=== PATIENT | male | born 1965 | race Caucasian/White ===

== ENCOUNTER 2018-12-18 09:15 | Outpatient (REF) | payer BC, SELFPAY ==
[2018-12-18 19:44] LABS: Anion Gap 7.1 mmol/L (3-11); BUN 19 mg/dL (7-18); CO2 28.9 mmol/L (21.0-32.0); CREATININE 1.01 mg/dL (0.70-1.30); Calcium 9.2 mg/dL (8.5-10.1); Chloride 104 mmol/L (98-107); Glucose 103 mg/dL (70-100); Potassium 4.6 mmol/L (3.5-5.1); Sodium 140 mmol/L (136-145)
== END 2018-12-18 09:35 ==
LOC: NCHCN 09:15
PROVIDERS: PCP Physician Assistant; Visit Provider Physician Assistant Medical
DX: I10 Essential (primary) hypertension (principal)
CPT/HCPCS: 80048

== ENCOUNTER 2019-12-20 09:50 | Outpatient (REF) | payer BC, SELFPAY ==
[2019-12-20 20:11] LABS: ALT 29 U/L (16-63); AST 23 U/L (15-37); Albumin 4.3 g/dL (3.4-5.0); Alkaline Phosphatase 56 U/L (46-116); Anion Gap 10.1 mmol/L (3-11); BUN 16 mg/dL (7-18); Bilirubin, Total 0.7 mg/dL (0.2-1.0); CO2 27.9 mmol/L (21.0-32.0); CREATININE 0.85 mg/dL (0.70-1.30); Calculated LDL 190 mg/dL (<100); Chloride 101 mmol/L (98-107); Cholesterol 296 mg/dL (<200); Glucose 101 mg/dL (74-106); HDL Cholesterol 85 mg/dL (40-60); Potassium 4.2 mmol/L (3.5-5.1); Sodium 139 mmol/L (136-145); Total Protein 7.7 g/dL (6.4-8.2); Triglyceride 108 mg/dL (<150)
== END 2019-12-20 10:10 ==
LOC: NCHCN 09:50
PROVIDERS: PCP Physician Assistant; Visit Provider Nurse Practitioner Family
DX: I10 Essential (primary) hypertension (principal); E78.5 Hyperlipidemia, unspecified
CPT/HCPCS: 80053; 80061

== ENCOUNTER 2020-07-23 14:33 | Outpatient (REF) | payer BC, SELFPAY ==
[2020-07-23 21:40] LABS: ALT 30 U/L (16-63); AST 20 U/L (15-37); Alkaline Phosphatase 63 U/L (46-116); Anion Gap 12.6 mmol/L (3-11); BUN 18 mg/dL (7-18); Bilirubin, Total 0.7 mg/dL (0.2-1.0); CO2 25.4 mmol/L (21.0-32.0); CREATININE 0.82 mg/dL (0.70-1.30); Calculated LDL 74 mg/dL (<100); Chloride 102 mmol/L (98-107); Cholesterol 167 mg/dL (<200); Glucose 103 mg/dL (74-106); HDL Cholesterol 86 mg/dL (40-60); Potassium 4.3 mmol/L (3.5-5.1); Sodium 140 mmol/L (136-145); Total Protein 7.1 g/dL (6.4-8.2); Triglyceride 36 mg/dL (<150)
[2020-07-23 21:56] LABS: Creatine Kinase 119 U/L (39-308)
== END 2020-07-23 14:53 ==
LOC: NCHCN 14:33
PROVIDERS: PCP Physician Assistant; Visit Provider Nurse Practitioner Family
DX: E78.5 Hyperlipidemia, unspecified (principal); I10 Essential (primary) hypertension
CPT/HCPCS: 80053; 80061; 82550

== ENCOUNTER 2021-08-25 12:57 | Outpatient (REF) | payer MEDICAID, SELFPAY ==
[2021-08-25 22:13] LABS: Anion Gap 11.2 mmol/L (3-11); BUN 15 mg/dL (7-18); CO2 26.8 mmol/L (21.0-32.0); CREATININE 0.8 mg/dL (0.70-1.30); Calcium 9.1 mg/dL (8.5-10.1); Chloride 103 mmol/L (98-107); Glucose 98 mg/dL (74-106); Potassium 4.5 mmol/L (3.5-5.1); Sodium 141 mmol/L (136-145)
== END 2021-08-25 12:58 | disposition home or self-care (01) ==
LOC: NCHCN 12:57
PROVIDERS: PCP Physician Assistant; Visit Provider Physician Assistant
DX: I10 Essential (primary) hypertension (principal)
CPT/HCPCS: 80048

== ENCOUNTER 2021-10-13 10:21 | Outpatient (CLI) | payer MEDICAID, SELFPAY ==
--- NOTE | 2021-10-13 10:15 | DI.RAD_ITS ---
Exam(s) XR SHOULDER LT COMPLETE 2+V EXAM: XR SHOULDER LT COMPLETE 2+V CLINICAL HISTORY: left shoulder pain. TECHNIQUE: 2D digital imaging was performed of the left shoulder. Two images were obtained. AP and axillary views were obtained. COMPARISON: No exams were available for comparison FINDINGS: BONES: No acute fracture is present. No bony destructive lesion is seen. JOINTS: There are marked degenerative changes seen at the glenohumeral joint with loss of the joint s pace. Subchondral sclerosis and cysts are also noted. Mild degenerative changes are seen at the acr omioclavicular joint. SOFT TISSUE: Normal. IMPRESSION: Marked osteoarthritis of the glenohumeral joint. DATA REPOSITORY: RADIATION DOSE DELIVERED:
== END 2021-10-13 10:22 | disposition home or self-care (01) ==
LOC: DIORS 10:22
PROVIDERS: PCP Physician Assistant; Visit Provider Student in an Organized Health Care Education/Training Program
DX: M25.512 Pain in left shoulder (principal); M19.012 Primary osteoarthritis, left shoulder
CPT/HCPCS: 73030

== ENCOUNTER 2021-10-23 02:34 | Outpatient (CLI) | payer MEDICAID, SELFPAY ==
--- NOTE | 2021-10-23 10:25 | DI.CT_ITS ---
Exam(s) CT UPPER EXTREMITY LT WO EXAM: CT UPPER EXTREMITY LT WO CLINICAL HISTORY: Severe arthritis,M19.012 TECHNIQUE: Imaging Protocol: Axial computed tomography images with coronal and sagittal reformatted images were created and reviewed. CONTRAST MATERIAL: None COMPARISON: CR XR SHOULDER LT COMPLETE 2+V from 10/13/2021 FINDINGS: Visualized lung field: 2 calcified granulomas are noted in the visualized left lung field. OSSEOUS: There is severe osteoarthritic narrowing of the left glenohumeral bamsf-dtqe-xk-bone degener ative subarticular cysts. There is also a mena-type osteophyte on the inferior articular surface of the humeral head. There are multiple calcified bodies seen in the medial recess. This subcoracoid articular extension drapes over the subscapularis. There are moderate degenerative changes in the AC joint. There is os acromiale noted. IMPRESSION: Severe advanced osteoarthritic degenerative change in the left glenohumeral joint. There also multip le partially calcified loose bodies, as described above. There are moderate degenerative changes in the ipsilateral AC joint. RADIATION DOSE DELIVERED: 860.75mGy.cm Total DLP DATA REPOSITORY: All CT scans at this facility are submitted to the National Radiology Data Registry (NRDR) Dose Index Registry (DIR) with the [employer] (ACR). RADIATION OPTIMIZATION: All CT scans at this facility use at least one of these dose optimization te chniques: automated exposure control; mA and/or kV adjustment per patient size (includes targeted exa ms where dose is matched to clinical indication); or iterative reconstruction.
== END 2021-10-23 02:54 ==
PROVIDERS: PCP Physician Assistant; Visit Provider Student in an Organized Health Care Education/Training Program
DX: M19.012 Primary osteoarthritis, left shoulder (principal)
CPT/HCPCS: 73200

== ENCOUNTER 2022-08-27 13:52 | Outpatient (REF) | payer MEDICAID, SELFPAY ==
[2022-08-27 18:42] LABS: Abs Immature Grans 0.02 10^3/uL (0.0-0.06); Absolute Basophil Count 0.06 10^3/uL (0.0-0.2); Absolute Lymphocyte Count 1.71 10^3/uL (1.2-3.4); Absolute Monocyte Count 0.73 10^3/uL (0.1-0.8); Absolute Neutrophil Count 6.56 10^3/uL (1.2-6.7); Basophils % 0.6; Eosinophils % 2.2; HCT 47.2 % (40.0-50.0); HGB 15.8 g/dL (13.5-17.5); Immature Grans % 0.2; Lymphocytes % 18.4; MCH 31.4 pg (27.0-33.0); MCHC 33.5 % (32.0-36.0); MCV 94 fL (80-95); MPV 11.7 fL (8.0-11.0); Monocytes % 7.9; Neutrophils % 70.7; Platelet Count 170 10^3/uL (130-400); RBC 5.03 10^6/uL (4.36-5.78); RDW 12.4 % (11.8-14.1); WBC 9.28 10^3/uL (4.4-10.8)
[2022-08-27 18:55] LABS: ALT 23 U/L (16-63); AST 25 U/L (15-37); Albumin 4.3 g/dL (3.4-5.0); Alkaline Phosphatase 57 U/L (46-116); Anion Gap 7.6 mmol/L (3-11); BUN 11 mg/dL (7-18); Bilirubin, Total 0.8 mg/dL (0.2-1.0); CO2 27.4 mmol/L (21.0-32.0); CREATININE 0.7 mg/dL (0.70-1.30); Calcium 9.2 mg/dL (8.5-10.1); Chloride 102 mmol/L (98-107); Estimated GFR 106.14 (mL/min/1.73m2); Glucose 102 mg/dL (74-106); Potassium 4.2 mmol/L (3.5-5.1); Sodium 137 mmol/L (136-145); Total Protein 7.8 g/dL (6.4-8.2)
== END 2022-08-27 13:53 | disposition home or self-care (01) ==
LOC: NCHCN 13:52
PROVIDERS: PCP Physician Assistant; Visit Provider Physician Assistant
DX: I10 Essential (primary) hypertension (principal); E78.5 Hyperlipidemia, unspecified; Z00.00 Encounter for general adult medical examination without abnormal findings
CPT/HCPCS: 80053; 85025

== ENCOUNTER 2023-09-02 08:47 | Outpatient (REF) | payer BC, SELFPAY ==
[2023-09-02 18:49] LABS: ALT 32 U/L (16-63); AST 24 U/L (15-37); Albumin 4.1 g/dL (3.4-5.0); Alkaline Phosphatase 64 U/L (46-116); Anion Gap 5.4 mmol/L (3-11); BUN 16 mg/dL (7-18); Bilirubin, Total 0.7 mg/dL (0.2-1.0); CO2 28.6 mmol/L (21.0-32.0); CREATININE 0.9 mg/dL (0.70-1.30); Calcium 9.4 mg/dL (8.5-10.1); Calculated LDL 81 mg/dL (<100); Chloride 103 mmol/L (98-107); Cholesterol 211 mg/dL (<200); Estimated GFR 97.78 (mL/min/1.73m2); Glucose 112 mg/dL (74-106); HDL Cholesterol 119 mg/dL (40-60); Potassium 4.4 mmol/L (3.5-5.1); Sodium 137 mmol/L (136-145); Total Protein 7.7 g/dL (6.4-8.2); Triglyceride 59 mg/dL (<150)
[2023-09-02 19:00] LABS: Hemoglobin A1C 5.7 % (<5.7)
== END 2023-09-02 08:48 | disposition home or self-care (01) ==
LOC: NCHCN 08:47
PROVIDERS: PCP Physician Assistant; Visit Provider Physician Assistant
DX: I10 Essential (primary) hypertension (principal); E78.5 Hyperlipidemia, unspecified; E66.9 Obesity, unspecified
CPT/HCPCS: 80053; 80061; 83036

== ENCOUNTER 2024-09-04 18:20 | Outpatient (REF) | payer BC, SELFPAY ==
--- OUTSIDE RECORDS SUMMARY | 2024-09-04 18:22 | XMS_ITS ---
Author Organization Unknown Address [address] [place] [address] [phone] Phone Care Team Providers Care Climbing Guide Name Role Phone LINN Joseph Attending Unavailable Social History Type Status Start Date End Date Code Code Syst em Smoking History Former smoker 3625641 SNOMED CT Sex Male Hospital Discharge Instructions Should you have any questions prior to discharge, please contact a member of your healthcare team. If you have left the hospital and have any questions, please contact your primary care physician. Reason For Referral No Data Found Implants Implanted DAVID Status Assigning Authority Procedure Date Lot Number Serial Number Manufacturing Date Expiration Date Distinct ID Code Brand Name Model Number INSET SHOULDER SYSTEM OFFSET HUMERAL HEAD 18MMX 48MM X R26MM ARTICULATI ON Active LEFT TSA 09/16 TGDA01 05/12/2026 [id number] 048 INSET SHOULDER SYSTEM SIZE 0 Active 09/16 THEA10 06/09/2027 5U0QZ13 280 GLENOID CIRCULAR IN LINE PEG +B11 30S0 CI27 0061 /$$7 UGCC 10/10 4D20 2606 162 Active FDA 09/16 UGCC01 03/25/2026 Orthopaedi c cement, antimicrob ial 0100 8855 5658 2220 1727 0228 1022 DTC0 200 Active FDA LEFT TKA 09/16 36BOJ14 00 12/07/2026 JOHNY 1357637 0 Allergies and Adverse Reactions Allergy Substance Reaction Severity Start Date Concern Status Co de Code System No Known Drug Allergies Active 270518944 SNOMED-CT Plan of Treatment PRE-OP TESTING 09/07/2022 PRE-OP TESTING 08/30/2022 PRE-OP COVID-19 TESTING 09/14/2022 CT LOWER EXTREM W/O CONTRAST 09/07/2022 Encounters Encounter Diagnosis Start Date Code Code Sys tem Idiopathic osteoarthritis 01/26/2022 095027384 SN OMED-CT Personal Care Team Section Performer Name Performer Role Active Date Inactive Da te
--- OUTSIDE RECORDS SUMMARY | 2024-09-04 18:23 | XMS_ITS ---
Author Organization Unknown Address [address] [place] [address] [phone] Phone Care Team Providers Care Special Library Librarian Name Role Phone Unavailable Xwatchlist Unavailable MARLENE Sal Attending Unavailable KIM Kim FARM OPERATOR Unavailable LINN Joseph Nurse Practitioner Unavailabl e Results XR SHOULDER 2V OR MORE LT* - Completed: 09/16/2022 12:24 LOINC: [facility] [place], [place] [address] PACS PRESS OPERATOR MEAT REPORT Patient Name: JAIME RUBIN MRN: Sex: : Age: [id number] M 1965 57 Account: Accession: Admit: StayType: [id number] 09/16/2022 O/P Ordered: Order ID: Submitted: Ordering Provider: 09/16/2022 09:05 [id number] KVK MAHAMED ROSARIO Completed: Technologist: Resulted: 09/16/2022 12:24 KVK 09/16/2022 13:18 Study Description: XR SHOULDER 2V OR MORE LT* Study Reason: TOTAL SHOULDER REPLACE Views: 2 COMPARISON: None FINDINGS: A total shoulder prosthesis has been placed. The alignment appears satisfactory. There are some residual postsurgical air in the soft tissues. Report Digitally Signed by Rajni Mckeon on 09/16/2022 01:18 PM EST Social History Type Status Start Date End Date Code Code Syst em Smoking History Former smoker 3212111 SNOMED CT Sex Male Vital Signs Vital Sign Value Unit [place] Value [place] Unit Date/Time Recent/Initial? Code Code System Body Mass Index 36.41 kg/m2 09/06/2022 10:32 Initial 04704 -5 LOINC Systolic Blood Pressure 108 mm[Hg] 09/16/2022 13:14 Initial 8480- 6 LOINC Diastolic Blood Pressure 65 mm[Hg] 09/16/2022 13:14 Initial 8462- 4 LOINC Body Surface Area 2.21 m2 09/06/2022 10:32 Initial 3140- 1 LOINC Height 168.910 0 cm 66.50 in 09/06/2022 10:32 Initial 8302- 2 LOINC O2 Saturation 96 % 2021 13:14 Initial 67491 -5 LOINC Pulse 81.0 /min 09/16/2022 13:14 Initial 8867- 4 LOINC Respiration 16 /min 09/16/20 13:14 Initial 9279- 1 LOINC Temperature 36.4 Reema 97.5 F 09/16/20 13:14 Initial 8310- 5 LOINC Weight 103.87 kg 229.00 lbs 09/06/2022 10:32 Initial 96719 -7 LOINC Hospital Discharge Instructions Should you have any questions prior to discharge, please contact a member of your healthcare team. If you have left the hospital and have any questions, please contact your primary care physician. Reason For Referral No Data Found Procedures Procedure Name Date Status Code Code Dena m Arthroplasty, Glenohumeral J oint; Total Shoulder 09/16/2022 completed 36710 CPT Injection Anesthetic Agent a nd/or Steroid; Brachial Plexus 09/16/2022 completed 00539 CPT Anesthesia, Open/Surg Arthro scopic Proc, Humeral Head & Neck, Sternoclav/Ac/Shoulder Jt; Replacemen 09/16/2022 completed 98610 CPT Implants Implanted DAVID Status Assigning Authority Procedure Date Lot Number Serial Number Manufacturing Date Expiration Date Distinct ID Code Brand Name Model Number INSET SHOULDER SYSTEM OFFSET HUMERAL HEAD 18MMX 48MM X R26MM ARTICULATI ON Active LEFT TSA 09/16 TGDA01 05/12/2026 [id number] 048 INSET SHOULDER SYSTEM SIZE 0 Active 09/16 THEA10 06/09/2027 3M5MI48 280 GLENOID CIRCULAR IN LINE PEG +B11 30S0 CI27 0061 /$$7 UGCC 10/10 4D20 2606 162 Active FDA 09/16 UGCC01 03/25/2026 Orthopaedi c cement, antimicrob ial 0100 8855 5658 2220 1727 0228 1022 DTC0 200 Active FDA LEFT TKA 09/16 12SQI68 00 12/07/2026 JOHNY 3855677 0 Allergies and Adverse Reactions Allergy Substance Reaction Severity Start Date Concern Status Co de Code System No Known Drug Allergies Active 850406194 SNOMED-CT Plan of Treatment PRE-OP TESTING 09/07/2022 PRE-OP TESTING 08/30/2022 PRE-OP COVID-19 TESTING 09/14/2022 CT LOWER EXTREM W/O CONTRAST 09/07/2022 Encounters Encounter Diagnosis Start Date Code Code Sys tem Primary osteoarthritis, left shoulder 09/16/2022 SNOMED-CT Personal Care Team Section Performer Name Performer Role Active Date Inactive Da tiffani
--- OUTSIDE RECORDS SUMMARY | 2024-09-04 18:23 | XMS_ITS ---
Author Organization Unknown Address [address] [place] [address] [phone] Phone Care Team Providers Care Assistant Property Manager Name Role Phone MARLENE Sal Attending Unavailable UNLISTED PROVIDER - REQUESTED Primary Un available Results CT UPPER EXT WO CONTRAST LT - Completed: 09/07/2022 14:29 [facility] [place], [place] [address] PACS DECK ENGINE OPERATOR REPORT Patient Name: JAIME RUBIN MRN: Sex: : Age: [id number] M 1965 57 Account: Accession: Admit: StayType: [id number] 09/07/2022 O/P Ordered: Order ID: Submitted: Ordering Provider: 09/07/2022 13:18 [id number] CLEMENTE MAHAMED ROSARIO Completed: Technologist: Resulted: 09/07/2022 14:29 PML 09/07/2022 17:30 Study Description: CT UPPER EXT WO CONTRAST LT Study Reason:OA LT SHOULDER COMPARISON: No exams were available for comparison FINDINGS: [There is no evidence of fracture nor dislocation. There are advanced osteoarthritic degenerative changes including advanced joint space narrowing and mena-type osteophyte on the inferior articular surface of the humeral head. Also degenerative subarticular cysts evident on both sides of the joint. In addition, there are multiple calcified loose bodies in the medial recess of the glenohumeral joint subcoracoid region. There are no calcifications in subacromial space. AC joint exhibits minimal degenerative change. There is an element of upward subluxation of the humeral head in the glenoid fossa approximately 8 mm. Incidentally noted are calcified granulomas in the ipsilateral left lung. IMPRESSION: Advanced osteoarthritic degenerative changes, as described above. Report Digitally Signed by Garry Radford on 09/07/2022 05:30 PM EST Social History Type Status Start Date End Date Code Code Syst em Smoking History Former smoker 4882818 SNOMED CT Sex Male Hospital Discharge Instructions [...] ON Active LEFT TSA 09/16 TGDA01 05/12/2026 3F0PE70 048 INSET SHOULDER SYSTEM SIZE 0 Active 09/16 THEA10 06/09/2027 0C6SG53 280 GLENOID CIRCULAR IN LINE PEG +B11 30S0 CI27 0061 /$$7 UGCC 10/10 4D20 2606 162 Active FDA 09/16 UGCC01 03/25/2026 Orthopaedi c cement, antimicrob ial 0100 8855 5658 2220 1727 0228 1022 DTC0 200 Active FDA LEFT TKA 09/16 20XVY76 00 12/07/2026 [facility] 2741856 0 Allergies and Adverse Reactions Allergy Substance Reaction Severity Start Date Concern Status Co de Code System No Known Drug Allergies Active 136211877 SNOMED-CT Plan of Treatment PRE-OP TESTING 09/07/2022 PRE-OP TESTING 08/30/2022 PRE-OP COVID-19 TESTING 09/14/2022 CT LOWER EXTREM W/O CONTRAST 09/07/2022 Encounters Encounter Diagnosis Start Date Code Code Sys tem Pre-surgery evaluation 09/07/2022 509846256 HARVEY D-CT Personal Care Team Section Performer Name Performer Role Active Date Inactive Da te
--- OUTSIDE RECORDS SUMMARY | 2024-09-04 18:23 | XMS_ITS ---
Author Organization Unknown Address [address] [place] [address] [phone] Phone Care Team Providers Care Patternmaker Helper Name Role Phone MARLENE Sal Attending Unavailable UNLISTED PROVIDER - REQUESTED Primary Un available Results [facility] - Macy ect Date/Time: 09/14/2022 09:39 [facility] ID: [id number] [address] [place], [place], [id number] LOINC: 33900-3 Test Value Unit Reference Range Code Code System Flag Tier- PRE-OP 70582-8 LOINC SARS COV2 RNA: NEGATIVE REFERENCE RANGE: NEGAT 61887-9 L OINC Social History Type Status Start Date End Date Code Code Syst em Smoking History Former smoker 7467277 SNOMED CT Sex Male Hospital Discharge Instructions [...] ON Active LEFT TSA 09/16 TGDA01 05/12/2026 5M5ZA51 048 INSET SHOULDER SYSTEM SIZE 0 Active 09/16 THEA10 06/09/2027 2Q8NY28 280 GLENOID CIRCULAR IN LINE PEG +B11 30S0 CI27 0061 /$$7 UGCC 10/10 4D20 2606 162 Active FDA 09/16 UGCC01 03/25/2026 Orthopaedi c cement, antimicrob ial 0100 8855 5658 2220 1727 0228 1022 DTC0 200 Active FDA LEFT TKA 09/16 59ZLN95 00 12/07/2026 [facility] Allergies and Adverse Reactions Allergy Substance Reaction Severity Start Date Concern Status Co de Code System No Known Drug Allergies Active 186618691 SNOMED-CT Plan of Treatment PRE-OP TESTING 09/07/2022 PRE-OP TESTING 08/30/2022 PRE-OP COVID-19 TESTING 09/14/2022 CT LOWER EXTREM W/O CONTRAST 09/07/2022 Encounters Encounter Diagnosis Start Date Code Code Sys tem Pre-surgery testing 09/14/2022 910977680 SNOMED-C T Personal Care Team Section Performer Name Performer Role Active Date Inactive Da tiffani
--- OUTSIDE RECORDS SUMMARY | 2024-09-04 18:23 | XMS_ITS ---
Author Organization Unknown Address [address] [place] [address] [phone] Phone Care Team Providers Care Senior Net Developer Name Role Phone MARLENE Sal Attending Unavailable Results SED RATE* - Collect Date/Vincent e: 09/07/2022 13:51 [facility] ID: [id number] [address] [place] [address], [address] LOINC: 4537-7 Test Value Unit Reference Range Code Code System Flag SED. RATE 20 mm/hr L=0 H=20 4537-7 LOINC MRSA/MSSA NASAL COMPLETE BY PCR* - Collect Date/Time: 09/07/2022 13:51 [facility] ID: [id number] [address] [place] [address], [phone] LOINC: Test Value Unit Reference Range Code Code System Flag MRSA NEGATIVE Normal: Negative 56554-7 LOINC MSSA NEGATIVE Normal: Negative CBC W/ DIFFERENTIAL* - Colle ct Date/Time: 09/07/2022 13:51 [facility] ID: [id number] [address] [place] [address], [address] LOINC: 32902-0 Test Value Unit Reference Range Code Code System Flag WBC 8.37 th/cmm L=5.00 H=10.00 6690-2 LOINC NEUT % 71.4 % L=40.0 H=80.0 LYMPH % 19.2 % L=10.0 H=50.0 MONO % 7.2 % L=2.0 H=12.0 98404-5 LOINC EOS % 1.3 % L=0.0 H=8.0 BASO % 0.5 % L=0.0 H=3.0 IG % 0.4 % L=0.0 H=1.1 2514-8 LOINC NRBC % 0.0 % L=0.0 H=0.0 72043-5 LOINC NEUT abs count 6.0 th/cmm L=1.6 H=8.4 751-8 LOINC LYMPH abs count 1.6 th/cmm L=1.5 H=4.0 731-0 LOINC MONO abs count 0.6 th/cmm L=0.2 H=1.0 742-7 LOINC EOS abs count 0.1 th/cmm L=0.0 H=0.5 711-2 LOINC BASO abs count 0.0 th/cmm L=0.0 H=0.2 704-7 LOINC IG abs count 0.0 th/cmm L=0.0 H=0.1 11007-6 LOINC NRBC abs count 0.0 mil/cmm L=0.0 H=0.0 75494-0 LOINC RBC 4.78 mil/cmm L=4.30 H=6.20 789-8 LOINC HEMOGLOBIN 15.0 gm/dL L=13.0 H=17.0 718-7 LOINC HEMATOCRIT 45 % L=45 H=52 4544-3 LOINC MCV 94 fL L=82 H=92 787-2 LOINC H MCH 31.4 pg L=27.0 H=31.0 785-6 LOINC H MCHC 33.6 % L=32.0 H=36.0 786-4 LOINC RDW-SD 44.0 fL L=39.0 H=49.0 788-0 LOINC PLATELET COUNT 224 th/cmm L=150 H=450 777-3 LOINC C REACTIVE PROTEIN HIGH SENS ITIVITY* - Collect Date/Time: 09/07/2022 13:51 [facility] ID: [id number] [address] [place], [place], [address] LOINC: 72556-5 Test Value Unit Reference Range Code Code System Flag CRP-HIGH SENS. 5.67 mg/L L=0.00 H=3.00 97678-6 LOINC H CRP-HIGH SENS 0.57 mg/dL L=0.00 H=0.30 96176-9 LOINC H BASIC METABOLIC PANEL (BMP) - Collect Date/Time: 09/07/2022 13:51 [facility] ID: [id number] [address] [place], [place], [address] LOINC: 28643-1 Test Value Unit Reference Range Code Code System Flag GLUCOSE 163 mg/dL L=70 H=116 2345-7 LOINC H BUN 19 mg/dL L=6 H=25 3094-0 LOINC CREATININE 0.80 mg/dL L=0.67 H=1.17 2160-0 LOINC SODIUM SERUM 138 mmol/L L=136 H=145 2951-2 LOINC POTASSIUM SERUM 3.6 mmol/L L=3.4 H=5.2 2823-3 LOINC CHLORIDE SERUM 102 mmol/L L=96 H=110 2075-0 LOINC CARBON DIOXIDE (CO2) 27 mmol/L L=22 H=34 2028-9 LOINC ANION GAP 8.9 mmol/L 91581-6 LOINC CALCIUM SERUM 8.8 mg/dL L=8.2 H=10.2 22879-0 LOINC AGE 57 years eGFR (non-Afr.Amer.) 99 mL/min 16045-1 LOINC eGFR (Afr-Jordanian) 120 mL/min 41871-1 LOINC Social History Type Status Start Date End Date Code Code Syst em Smoking History Former smoker 6208513 SNOMED CT Sex Male Hospital Discharge Instructions [...] ON Active LEFT TSA 09/16 TGDA01 05/12/2026 5Q9FF93 048 INSET SHOULDER SYSTEM SIZE 0 Active 09/16 THEA10 06/09/2027 4Y6CT94 280 GLENOID CIRCULAR IN LINE PEG +B11 30S0 CI27 0061 /$$7 UGCC 10/10 4D20 2606 162 Active FDA 09/16 UGCC01 03/25/2026 Orthopaedi c cement, antimicrob ial 0100 8855 5658 2220 1727 0228 1022 DTC0 200 Active FDA LEFT TKA 09/16 95TFX96 00 12/07/2026 JOHNY 5158571 0 Allergies and Adverse Reactions Allergy Substance Reaction Severity Start Date Concern Status Co de Code System No Known Drug Allergies Active 583475041 SNOMED-CT Plan of Treatment PRE-OP TESTING 09/07/2022 PRE-OP TESTING 08/30/2022 PRE-OP COVID-19 TESTING 09/14/2022 CT LOWER EXTREM W/O CONTRAST 09/07/2022 Encounters Encounter Diagnosis Start Date Code Code Sys tem Pre-surgery testing 09/07/2022 006874254 SNOMED-C T Personal Care Team Section Performer Name Performer Role Active Date Inactive Da tiffani
--- OUTSIDE RECORDS SUMMARY | 2024-09-04 18:24 | XMS_ITS ---
Author Organization Unknown Address [address] [place] [address] [phone] Phone Care Team Providers Care Mobile Phlebotomist Name Role Phone CYNDI PIZANO Attending Unavailable UNLISTED PROVIDER - REQUESTED Primary Un available Results XR SHOULDER 2V OR MORE LT* - Completed: 10/26/2022 14:43 [facility] [place], [place] [address] PACS MARKETING LEAD REPORT Patient Name: JAIME RUBIN MRN: Sex: : Age: [id number] M 1965 57 Account: Accession: Admit: StayType: [id number] 10/26/2022 CLINIC Ordered: Order ID: Submitted: Ordering Provider: 10/26/2022 14:30 [id number] [facility] [place] [facility]NA Completed: Technologist: Resulted: 10/26/2022 14:43 NITIN 10/26/2022 15:03 Study Description: XR SHOULDER 2V OR MORE LT* Study Reason: S/P TSR Technique: 2D digital imaging was performed. 2 images were obtained. COMPARISON: Comparison examination is 09/28/2022. FINDINGS: Bones: No acute fractures present. No bony destructive lesion is seen. Joints: No dislocation is present. There are stable postsurgical changes of a left shoulder arthroplasty. There do appear to be degenerative changes at the acromioclavicular joint. Soft tissues: Unremarkable. IMPRESSION: Stable left shoulder arthroplasty. Report Digitally Signed by Brett Leon on 10/26/2022 03:03 PM EST Social History Type Status Start Date End Date Code Code Syst em Smoking History Former smoker 1751583 SNOMED CT Sex Male Hospital Discharge Instructions [...] ON Active LEFT TSA 09/16 TGDA01 05/12/2026 2L5QY96 048 INSET SHOULDER SYSTEM SIZE 0 Active 09/16 THEA10 06/09/2027 0C0YY18 280 GLENOID CIRCULAR IN LINE PEG +B11 30S0 CI27 0061 /$$7 UGCC 10/10 4D20 2606 162 Active FDA 09/16 UGCC01 03/25/2026 Orthopaedi c cement, antimicrob ial 0100 8855 5658 2220 1727 0228 1022 DTC0 200 Active FDA LEFT TKA 09/16 54GYO39 00 12/07/2026 JOHNY 5849396 0 Allergies and Adverse Reactions Allergy Substance Reaction Severity Start Date Concern Status Co de Code System No Known Drug Allergies Active 414530603 SNOMED-CT Plan of Treatment PRE-OP TESTING 09/07/2022 PRE-OP TESTING 08/30/2022 PRE-OP COVID-19 TESTING 09/14/2022 CT LOWER EXTREM W/O CONTRAST 09/07/2022 Encounters Encounter Diagnosis Start Date Code Code Sys tem Aftercare 10/26/2022 244980230 SNOMED-CT Personal Care Team Section Performer Name Performer Role Active Date Inactive Da te
--- OUTSIDE RECORDS SUMMARY | 2024-09-04 18:24 | XMS_ITS ---
Author Organization Unknown Address [address] [place] [address] [phone] Phone Care Team Providers Care Mica Inspector Name Role Phone MARLENE Sal Attending Unavailable UNLISTED PROVIDER - REQUESTED Primary Un available Results XR SHOULDER 2V OR MORE LT* - Completed: 09/28/2022 14:39 [facility] [place], [place] [address] PACS FITNESS SALES ASSOCIATE REPORT Patient Name: JAIME RUBIN MRN: Sex: : Age: [id number] M 1965 57 Account: Accession: Admit: StayType: [id number] 09/28/2022 CLINIC Ordered: Order ID: Submitted: Ordering Provider: 09/28/2022 14:29 [id number] MAHAMED DE LA TORRE Completed: Technologist: Resulted: 09/28/2022 14:39 NITIN 09/28/2022 16:39 Study Description: XR SHOULDER 2V OR MORE LT* Study Reason: S/P TSR Views: 2 COMPARISON: 16 September 2020 FINDINGS: BONES: There has been no change in the appearance of the total shoulder prosthesis. No acute fracture is present. No bony destructive lesion is seen. JOINTS: No dislocation present. SOFT TISSUE: Normal. IMPRESSION: No acute abnormality. Report Digitally Signed by Rajni Mckeon on 09/28/2022 04:39 PM EST Social History Type Status Start Date End Date Code Code Syst em Smoking History Former smoker 7723431 SNOMED CT Sex Male Hospital Discharge Instructions [...] ON Active LEFT TSA 09/16 TGDA01 05/12/2026 8Z1XH37 048 INSET SHOULDER SYSTEM SIZE 0 Active 09/16 THEA10 06/09/2027 7I9BA93 280 GLENOID CIRCULAR IN LINE PEG +B11 30S0 CI27 0061 /$$7 UGCC 10/10 4D20 2606 162 Active FDA 09/16 UGCC01 03/25/2026 Orthopaedi c cement, antimicrob ial 0100 8855 5658 2220 1727 0228 1022 DTC0 200 Active FDA LEFT TKA 09/16 56KTK56 00 12/07/2026 [facility] 1627876 0 Allergies and Adverse Reactions Allergy Substance Reaction Severity Start Date Concern Status Co de Code System No Known Drug Allergies Active 486358449 SNOMED-CT Plan of Treatment PRE-OP TESTING 09/07/2022 PRE-OP TESTING 08/30/2022 PRE-OP COVID-19 TESTING 09/14/2022 CT LOWER EXTREM W/O CONTRAST 09/07/2022 Encounters Encounter Diagnosis Start Date Code Code Sys tem Aftercare 09/28/2022 402230833 SNOMED-CT Personal Care Team Section Performer Name Performer Role Active Date Inactive Da te
--- OUTSIDE RECORDS SUMMARY | 2024-09-04 18:24 | XMS_ITS | Clinical Summary ---
Author Organization [facility] [place] [address] Care Team Providers Care Electronic Instrument Trades Worker Name Role Phone Kisha Koch Primary Care Provider Allergies No known active allergies Medications Medication Sig Dispensed Refills Start Date End Date Status ibuprofen (ADVIL;MOTRIN) 200 mg Tablet Take 200 mg by mouth as needed for Pain. Active amLODIPine (Norvasc) 10 mg Tablet TAKE ONE TABLET BY MOUTH EVERY DAY 11/11/2021 Active atorvastatin (Lipitor) 80 mg Tablet TAKE 1 TABLET BY MOUTH EVERY NIGHT 11/11/2021 Active lisinopriL (Zestril) 40 mg Tablet TAKE ONE TABLET BY MOUTH EVERY DAY 09/05/2021 Active Active Problems Problem Noted Date Diagnosed Date Hypertension 11/10/2015 Primary osteoarthritis of right hip 11/10/2015 Family History Medical History Relation Comments Pacemaker Father Deep Vein Thrombosis Neg Hx Relation Status Comments Father Social History Tobacco Use Types Packs/Day Years Used Date Smoking Tobacco: Never Smokeless Tobacco: Never Alcohol Use Standard Drinks/Week Comments Yes 0 (1 standard drink = 0.6 oz pure alcohol) 2-6 drinks per DAY Beer & Liquor Sex and Gender Information Value Date Recorded Sex Assigned at Not on file Gender Identity Not on file Sexual Orientation Not on file Last Filed Vital Signs Vital Sign Reading Time Taken Comments Blood Pressure 143/84 11/27/2021 1:03 PM EST Pulse 91 11/27/2021 1:03 PM EST Temperature - - Respiratory Rate - - Oxygen Saturation - - Inhaled Oxygen Concentration - - Weight 107.5 kg (237 lb) 11/27/2021 1:03 PM EST reported Height 172.7 cm (5' 8) 11/27/2021 1:03 PM EST r eported Body Mass Index 36.04 11/27/2021 1:03 PM EST Plan of Treatment Health Maintenance Due Date Last Done Comments CT Colonography 1965 Colonoscopy 1965 Colorectal Cancer Screening 1965 FIT DNA 1965 FIT 1965 Sigmoidoscopy (10 year) with FIT yearly 1965 Sigmoidoscopy 1965 HIV screen 1981 Hepatitis C Screening 1981 Tetanus/Diphtheria/Pertussis Vaccines (1 - Tdap) 05/06 Diabetes Screening (HgbA1C or Glucose) 2003 Zoster vaccine (1 of 2) 2013 Advance Directive 2018 Covid-19 Vaccine (1 - season) 2024 Influenza (Flu) vaccine (1 o f 1 - Influenza standard series) 06/10/2024 Care Teams Electronic Instrument Trades Worker Relationship Specialty Start Date End Date Kisha Koch PA [address] [place] [address] PCP - General Family Medicine 11/18/21
--- OUTSIDE RECORDS SUMMARY | 2024-09-04 18:24 | XMS_ITS ---
Author Organization Unknown Address [address] [place] [phone] Phone Care Team Providers Care Auditor In Charge Name Role Phone MARLENE Sal Attending Unavailable Social History Type Status Start Date End Date Code Code Syst em Smoking History Former smoker [id number] SNOMED CT Sex Male Hospital Discharge Instructions [...] ON Active LEFT TSA 09/16 TGDA01 05/12/2026 7R4DR28 048 INSET SHOULDER SYSTEM SIZE 0 Active 09/16 THEA10 06/09/2027 9Z8KC04 280 GLENOID CIRCULAR IN LINE PEG +B11 30S0 CI27 0061 /$$7 UGCC 10/10 4D20 2606 162 Active FDA 09/16 UGCC01 03/25/2026 Orthopaedi c cement, antimicrob ial 0100 8855 5658 2220 1727 0228 1022 DTC0 200 Active FDA LEFT TKA 09/16 87VQQ38 00 12/07/2026 JOHNY 8679930 0 Allergies and Adverse Reactions Allergy Substance Reaction Severity Start Date Concern Status Co de Code System No Known Drug Allergies Active 085422359 SNOMED-CT Plan of Treatment PRE-OP TESTING 09/07/2022 PRE-OP TESTING 08/30/2022 PRE-OP COVID-19 TESTING 09/14/2022 CT LOWER EXTREM W/O CONTRAST 09/07/2022 Encounters Encounter Diagnosis Start Date Code Code Sys tem Idiopathic osteoarthritis 09/16/2022 [id number] SN OMED-CT Personal Care Team Section Performer Name Performer Role Active Date Inactive Da te
--- OUTSIDE RECORDS SUMMARY | 2024-09-04 18:25 | XMS_ITS | Encounter Summary ---
Author Organization [facility] [place] [address] Care Team Providers Care Postal Carrier Name Role Phone Unavailable Primary Care Provider Unavailabl e Reason for Visit * Reason Onset Date Comments Pre Procedure Call 07/23/2016 Encounter Details Date Type Department Care Team (Late st Contact Info) Description 07/23/2016 Telephone [place] [phone] Iam Antunez MD [facility] [place] [address] Pre Procedure Call Social History Tobacco Use Types Packs/Day Years Used Date Smoking Tobacco: Never Smokeless Tobacco: Never Alcohol Use Standard Drinks/Week Comments Yes 0 (1 standard drink = 0.6 oz pure alcohol) 2-6 drinks per DAY Beer & Liquor Sex and Gender Information Value Date Recorded Sex Assigned at Not on file Gender Identity Not on file Sexual Orientation Not on file documented as of this encounter Miscellaneous Notes * Telephone Encounter - Marleny Aguilar - 07/23/2016 11:43 AM EDT When is your procedure? Patient would like to schedule surgery Who is your surgeon? Dr. Antunez What procedure are you having? R VERO What is the question you would like to ask the nurse? Patient would like to schedule surgery Best number to reach the patient # [phone] The nurse continuously monitors all messages and will return your call before the end of the day. The nurse may need to consult the surgeon about your question which may delay the return call by 24hrs. documented in this encounter Plan of Treatment Not on file documented as of this encounter Visit Diagnoses Not on filedocumented in this encounter
--- OUTSIDE RECORDS SUMMARY | 2024-09-04 18:25 | XMS_ITS | Encounter Summary ---
Author [facility] [address] Care Team Providers Care Cfo Controller Name Role Phone Kisha Koch Primary Care Provider [phone] Encounter Details Date Type Department Care Team (Latest Contact Info) Description 12/15/2021 8:00 AM EST TH Visit (TeleHealth) [place] [address] Charanjit Arguelles MD [facility] [address] [place] [address] Primary osteoarthritis of left shoulder Social History Tobacco Use Types Packs/Day Years [...] on file documented as of this encounter Progress Notes * Charanjit Arguelles MD - 12/15/2021 8:00 AM EST I called this patient to discuss his severe shoulder arthritis. Since I saw him in clinic I was able to discuss his case with my partners at indications comments. Additionally I was able to upload his CT scan and look at it with my preoperative planning software. My partners and I all agree that a anatomic or hemiarthroplasty would be the best choice for him if his glenoid component would fit on planning. Fortunately, planning software did indicate that if I used a three pegged glenoid that there will be adequate bone to support his prosthesis. 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 We all agreed that he should try to avoid heavy lifting as much as possible to avoid catastrophic failure of his implant. If he is unable to modify his activities whatsoever, I would recommend a hemiarthroplasty for him. We did discuss that this would likely result in an inferior pain relief and good cause significant glenoid wear over time. Ultimately, I would recommend an anatomic total shoulder with activity modification. I discussed all these issues with him. 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 He reports he will consider his options and may schedule surgery in the fall. documented in this encounter Plan of Treatment Not on file documented as of this encounter Visit Diagnoses Diagnosis Primary osteoarthritis of left shoulder Primary localized osteoarthrosis, shoulder region documented in this encounter Care Teams Cfo Controller Relationship Specialty Start Date End Date Kisha Koch PA [address] [place] [id number] PCP - General Family Medicine 11/18/21 documented as of this encounter
--- OUTSIDE RECORDS SUMMARY | 2024-09-04 18:25 | XMS_ITS | Encounter Summary ---
Author Organization [facility] [place] [address] Care Team Providers Care Reference Services Head Name Role Phone Unavailable Primary Care Provider Unavailabl e Encounter Details Date Type Department Care Team (Late st Contact Info) Description 10/16/2015 - 10/16/2015 11:59 PM EST Hospital Encounter Radiology Library at [facility] [place] [phone] [address] Kip Temporary Pain Discharge Disposition: Home Social History Tobacco Use Types Packs/Day Years Used Date Smoking Tobacco: Never Assessed Sex and Gender Information Value Date Recorded Sex Assigned at Not on file Gender Identity Not on file Sexual Orientation Not on file documented as of this encounter Plan of Treatment Not on file documented as of this encounter Procedures Procedure Name Priority Date/Time Associated Diagnosis Comments FILM LIBRARY STORAGE ONLY DX HIP Routine 10/16/2015 12:00 AM EST Pain documented in this encounter Results * Film Library- Storage only DX Hip (10/16/2015 12:00 AM EST) Narrative ANAI - 10/28/2015 1:01 PM EST See PACS for result report. Dr Jeffrey Shin G FILM LIBRARY ORD ERABLES [facility] [place] documented in this encounter Visit Diagnoses Diagnosis Pain Generalized pain documented in this encounter
--- OUTSIDE RECORDS SUMMARY | 2024-09-04 18:25 | XMS_ITS | Encounter Summary ---
Author Organization [facility] [place] [address] Care Team Providers Care Salesperson Men'S Furnishings Name Role Phone Unavailable Primary Care Provider Unavailabl e Reason for Visit * Reason Onset Date Comments Pre Procedure Call 11/03/2016 Encounter Details Date Type Department Care Team (Late st Contact Info) Description 11/03/2016 Telephone [place] [phone] Iam Antunez MD [facility] [place] [address] Pre Procedure Call Social History Tobacco Use [...] encounter Miscellaneous Notes * Telephone Encounter - Jackie Block - 11/03/2016 4:37 PM EST Patient had surgery at st [facility] documented in this encounter Plan of Treatment Not on file documented as of this encounter Visit Diagnoses Not on filedocumented in this encounter
--- OUTSIDE RECORDS SUMMARY | 2024-09-04 18:25 | XMS_ITS | Encounter Summary ---
Author Organization [facility] [place] [address] Care Team Providers Care Fagot Heater Helper Name Role Phone Unavailable Primary Care Provider Unavailabl e Encounter Details Date Type Department Care Team (Late st Contact Info) Description 10/23/2021 Ancillary Procedure Radiology Library at [facility] [place] [address] Hermes Kenny MD [facility] [place] [address] Social History Tobacco Use Types Packs/Day Years [...] Associated Diagnosis Comments FILM LIBRARY STORAGE ONLY CT UPPER EXTREMITY Routine 10/23/2021 12:00 AM EST documented in this encounter Results * Film Library- Storage Only CT Upper Extremity (10/23/2021 12:00 AM EST) Narrative ANAI - 11/17/2021 11:22 AM EST This exam is auto-finalizing. It's purpose is for storage only. Hermes Kenny MD G FILM LIBRARY ORD ERABLES [facility] [place] documented in this encounter Visit Diagnoses Not on filedocumented in this encounter
--- OUTSIDE RECORDS SUMMARY | 2024-09-04 18:25 | XMS_ITS | Encounter Summary ---
Author Organization [facility] [place] [address] Care Team Providers Care Adjustment Clerk Name Role Phone Kisha Koch Primary Care Provider Reason for Visit * Reason Comments Establish Care Left shoulder pain - OA 2nd op * Consultation (Routine) - Closed Specialty Diagnoses / Procedures Referred By Maximus t Referred To Contact Orthopaedics Diagnoses Left shoulder pain Emanuel Schwarz MD [address] [place] [address] [facility] [address] [place] [address] Referral ID Status Reason Start Date Expiration Date V isits Requested Visits Authorized [id number] Closed Consult, Test & Treat PCP Updated and/or Approved 11/17/2021 11/17/2022 6 6 Encounter Details Date Type Department Care Team (Latest Contact Info) Description 11/27/2021 1:00 PM EST Office [place] [address] Charanjit Arguelles MD [facility] [place] [address] Primary osteoarthritis of left shoulder Social History [...] on file documented as of this encounter Last Filed Vital Signs Vital Sign Reading [...] Mass Index 36.04 11/27/2021 1:03 PM EST documented in this encounter Progress Notes * Charanjit Arguelles MD - 11/27/2021 1:00 PM EST Orthopaedic Surgery Clinic Note Referral: Az Feldman presents to see us in consultation today at the request of: Emanuel Schwarz MD [address] [place] [address] Chief Complaint: Left shoulder pain History of Present Illness: Az Feldman is a 56 y.o. Right hand dominant male who presents with Left shoulder pain. Patient reports that has had over 5 years of left shoulder pain. He never had anyinjury or incident which preceded the symptoms. The pain is deep about the shoulder and does not radiate. He takes Advil with some relief. 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 He has not yet undergone any injections. He is previously seen at [facility] orthopedics where there was appropriate concern about his high degree of bone loss. He was referred here for further discussion of treatment options. Previous interventions: Non-steroidal anti-inflammatory medications Pertinent Medical History: Hypertension Pertinent Surgical History: Right total hip arthroplasty 3 years ago that is done well Pertinent Family History: None Social History: Occupation: thermal cutting machine operator and cheema Current Smoker: no Objective: GENERAL: Well appearing, appropriate NEUROVASCULAR: Sensation intact to light touch in the Left upper extremity. Warm and well perfused hand. SKIN: No significant abrasions or lesions about the shoulder. MUSCULOSKELETAL: Left Shoulder Examination Visible abnormality: No Tenderness to palpation: No Palpable crepitus: No Range of motion Left Forward Elevation: 100, 110 passive External Rotation: 50 Internal Rotation: Sacrum Strength Testing: Abduction: 5/5 No Pain External Rotation: 5/5 No Pain Resisted Internal Rotation: 5/5 No Pain Rotator Cuff Testing Empty Can/Aneesh's: Negative Bear Hug: Negative Osteoarthritis: Chondral Shear Test: Positive Imaging: We independently reviewed the patient's imaging in the office today. X- ray and CT imaging were both reviewed in the office today. He does have severe glenohumeral arthritis with significant medialization glenoid bone loss. Assessment/Plan: 56 y.o. male who presents with severe left shoulder glenohumeral arthritis. We hada long discussion with the patient about their diagnosis, the natural history of this pathology, and treatment options. We discussed non-operative and operative interventions for this issue. Non-opera tive management would include activity modification to address activities causing pain, a course ofnon-steroidal anti-inflammatory medications as needed to decrease inflammation, physical therapy, and steroid injections which often provide weeks to months of relief. Patient situation is difficult as he is still relatively young and works in a strenuous profession, but does have significant glenohumeral arthritis with associated bone loss. 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 He does feel like he is getting to a point where he can no longer tolerate the pain andwants to move forward with shoulder arthroplasty. I am concerned about the amount of glenoid bone remaining in terms of getting adequate fixation of an anatomic polyethylene component to have secure fixation in his glenoid. I do think that a reverse shoulder arthroplasty would likely provide betterfixation, but I would be concerned that it could fail in the future based upon his young age and leave him without enough remaining glenoid for reconstruction. We discussed the general restrictions of shoulder arthroplasty including no repeated lifting more than 25 pounds, particularly overhead. This is difficult for his job which requires in the left up to 60 pounds onto his shoulder at times. We discussed hemiarthroplasty as well to avoid these restrictions, but this is certainly high risk interms of wearing away the remaining glenoid that he does have. At this point, I will upload his images into my shoulder arthroplasty planning software. We will also discuss his case my partners to get their opinions on reconstruction options. I will contact the patient by phone in approximately 2 weeks to further discuss recommendations. Charanjit Arguelles MD, MS Shoulder and Elbow Surgeon Department of Orthopaedic Surgery [facility] This note was created with the assistance of voice dictation software. Please excuse any related errors. documented in this encounter Plan of Treatment Not on file documented as of this encounter Visit Diagnoses Diagnosis Primary osteoarthritis of left shoulder Primary localized osteoarthrosis, shoulder region documented in this encounter Care Teams Adjustment Clerk Relationship Specialty Start Date End Date Kisha Koch PA [address] [place] [id number] PCP - General Family Medicine 11/18/21 documented as of this encounter
--- OUTSIDE RECORDS SUMMARY | 2024-09-04 18:25 | XMS_ITS | Encounter Summary ---
Author [facility] [place] [place] [address] Care Team Providers Care Patient Educator Name Role Phone Unavailable Primary Care Provider Unavailabl e Reason for Visit * Reason Comments Right Hip Pain OA * Consultation (Urgent) - Closed Specialty Diagnoses / Procedures Referred By Contac t Referred To Contact Orthopaedics Diagnoses R hip degenerative disease Ralph Lancaster PA [address] [place] [address] [facility] [address] [place] [phone] Referral ID Status Reason Start Date Expiration Date V isits Requested Visits Authorized [id number] Closed Consult, Test & Treat Connection Center 10/28/2015 10/27/2016 1 1 Encounter Details Date Type Department Care Team (Latest Contact Info) Description 11/10/2015 3:00 PM EST Office [place] [phone] Iam Antunez MD [facility] ORTHOPAEDIC [place] [address] Primary osteoarthritis of right hip Social History Tobacco Use Types Packs/Day Years [...] Sign Reading Time Taken Comments Blood Pressure 210/122 11/10/2015 2:33 PM EST Pulse 92 11/10/2015 2:33 PM EST Temperature - - Respiratory Rate - - Oxygen Saturation - - Inhaled Oxygen Concentration - - Weight 106.6 kg (235 lb) 11/10/2015 2:33 PM EST verbal Height 165.1 cm (5' 5) 11/10/2015 2:33 PM EST v erbal Body Mass Index 39.11 11/10/2015 2:33 PM EST documented in this encounter Progress Notes * Iam Antunez MD - 11/10/2015 3:11 PM EST Arthroplasty History/Previous Hip Surgery: 1. None Chief Complaint: Chief Complaint Patient presents with ??? Right Hip Pain OA This patient was referred from DARIA Nash [address] [place] [phone] I.D.: Az Feldman is a 50 y.o. year old male being seen today to discuss his right hip. His history andphysical exam were reviewed in detail. He states the hip has been symptomatic for 1 year. There was no inciting trauma/injury. He does describe hip pain, does report groin pain, does not endorse thigh pain and does feel as if he walks with a limp. There is No radiation of the pain. Aggravating factors include walking on uneven ground or a downslope. Alleviating factors include rest. no pain at night.. He can walk unlimited distances on even ground and does not use assistive devices. He climb stairs and does not use the railing. He does not have difficulty putting on his shoesand socks. He can sit comfortably in a chair. He has not had tried injections into the joint. He has tried NSAIDs/Pain meds (Advil). Mr. Feldman denies fevers/chills/headache/chest pain/shortness of breath/abdominal pain/nausea or vomiting/weight changes He does not endorse a history of DVT/PE or clotting disorder. ASSOCIATED DIAGNOSES: He does not reports problems with the contralateral hip, does report problems with the ipsilateral knee and does not have a history of spine or back issues. ALLERGIES No Known Allergies Allergies to metals: None. SOCIAL HISTORY: reports that he has never smoked. He has never used smokeless tobacco. He reports that he drinks alcohol. He reports that he does not use illicit drugs. Occupation: [employer]: [employer] SIGNIFICANT MEDICAL COMORBIDITIES: Patient Active Problem List Diagnosis Code ??? Hypertension I10 ??? Primary osteoarthritis of right hip M16.11 Recently starting going to a PCP again. He has a return trip to his PCP to discuss his newly diagnosed HTN. VITALS: BP Readings from Last 1 Encounters: 11/10/15 210/122 Pulse Readings from Last 1 Encounters: 11/10/15 92 Height: 165.1 cm (5' 5) (verbal) Weight - Scale: (!) 106.595 kg (235 lb) (verbal) Body mass index is 39.11 kg/(m^2). PHYSICAL EXAM: Constitution: Patient sits in the clinic today in no apparent distress. The patient is alert and oriented x 3. Appearance is age-appropriate, affect is similarly appropriate. Head, ears, eyes, nose, throat: grossly normal. Anicteric, no apparant lymphadenopathy. Chest: Normal chest expansion with re gular inspiratory effort. No audible wheezing with regularly inspiratory effort. Cardiac: regular rate and rhythm by peripheral palpation. Abdominal: Soft non- tender abdomen with no masses noted. C, T, L & S Spines demonstrate supple pain-free ROM with no focal abnormality. Gross extremity examination demonstrates full active and passive ROM without stigmata of rheumatoid disease. I have made the following determinations: Hip Exam: Right Prior surgery on this joint: No Leg length: Longer leg: left Limb Length discrepancy: 0.5cm Motion: Flexion contracture: 0 Total degrees of Flexion:95 Total degrees of Abduction:30 Total degrees of Ext Rotation: 25 Total degrees of Internal Rotation: 10 Gait Abnormality: Antalgic Skin Integrity: Normal Pulses Palpable: Right PT: Yes Right DP:Yes Motor/Sensory: Right Distal Motor: Normal Distal Sensory: Normal Hip Abductors: 5 Trendelenburg test: negative Radiographic evidence of joint damage:[0= normal; 1=minimal ; 2= some osteophytes , some narrowing ; 3= moderate osteophytes, significant narrowing, mild deformity; 4= large osteophytes, marked narrowing, obvious deformity]: 3= moderate osteophytes, significant narrowing, mild deformity Questionnaire Responses: General Health, Prior Treatments, PreExisting Condition, Health Habits, About You 11/10/2015 PROMIS-10 General Health Very Good PROMIS-10 Quality of Life Very Good PROMIS-10 Physical Health Very Good PROMIS-10 Mental Health Very Good PROMIS-10 Social Activity Very Good PROMIS-10 Everyday Activities Moderately PROMIS-10 Pain 3 PROMIS-10 Fatigue Mild PROMIS-10 Social Roles Very Good PROMIS-10 Anxious or Depressed Never PROMIS PHYSICAL SCORE (range 16-68) 47.7 PROMIS MENTAL SCORE (range 21-68) 56 Treatments Tried Regular exercise, Weight loss Alzheimers or dementia No Cirrohosis or liver disease No HIV/AIDS No Pain in more than one joint in legs No Back or neck pain No Heart attack No Heart failure No Unclog/bypass leg arteries No Stroke, blood clot, TIA No Asthma No Emphysema, chronic bronchities, or COPD No Stomach ulcers/peptic ulcer disease No Diabetes No Poor kidney function No Rheumatic condtions No Cancer No Weight (lbs) 235 Height (feet) 5 feet Height (Inches) 5 BMI 39.1 (Obese) Ever used tobacco products No Ever used alcoholic beverages Yes Alcohol frequency Daily or almost daily WHO - Alcohol Advice 6 (You are at risk of health and other problems from your current pattern of alcohol use.) Live Alone No Marital situation Single (never ) Schooling High school graduate or GED Combined Household Income Prefer not to answer # People Supported 1 [place]er, , No, not [place]er// Race White Currently working No Not working because: Laid off [facility] [place] [employer] Response 11/10/2015 HOOS-PS Scores 30.4 No flowsheet data found. ASSESSMENT AND PLAN: Mr. Feldman is a 50 y.o. year old male with significant osteoarthritis of his right hip. We reviewed the multiple treatment options available to him for this condition. Both operative and nonoperative options were discussed as well as the pure elective nature of each. I reviewed the concept of the arthritis ladder with its step-barajas approach, rising in invasiveness based on either previous response or symptom severity/impact on lifestyle. I do think that total hip arthroplasty would be a reasonable option for him if his pain and disability are significant. At this point, he is happy to keep going as he has been. He wanted to determine what exactly was causing his discomfort. Now that he knows he has hip arthritis and is aware of the options, he will monitor his symptoms and call us if he would like to move forward with more invasive procedures. He will continue to take Advil. We discussed the possibility of fluoroscopic-guided injection. He will work on weight loss. He will see his primary care doctor to address his hypertension, which was significant in the clinic today. Follow-up when necessary. documented in this encounter Plan of Treatment Not on file documented as of this encounter Visit Diagnoses Diagnosis Primary osteoarthritis of right hip Primary localized osteoarthrosis, pelvic region and thigh documented in this encounter
--- OUTSIDE RECORDS SUMMARY | 2024-09-04 18:25 | XMS_ITS | Encounter Summary ---
[place] [address] Care Team Providers Care Casino Change Attendant Name Role Phone Unavailable Primary Care Provider Unavailabl e Encounter Details Date Type Department Care Team (Late st Contact Info) Description 08/06/2016 Orders Only [place] [address] Iam Antunez MD [facility] DR [place] [address] Primary osteoarthritis of right hip (Primary Dx) Social History Tobacco Use Types Packs/Day Years [...] Visit Diagnoses Diagnosis Primary osteoarthritis of right hip- Primary Primary localized osteoarthrosis, pelvic region and thigh documented in this encounter
--- OUTSIDE RECORDS SUMMARY | 2024-09-04 18:25 | XMS_ITS | Encounter Summary ---
Author Organization [facility] [place] [address] Care Team Providers Care Irrigation Flume Layer Name Role Phone Unavailable Primary Care Provider Unavailabl e Reason for Visit * Reason Onset Date Comments Pre Procedure Call 08/02/2016 Encounter Details Date Type Department Care Team (Late st Contact Info) Description 08/02/2016 Telephone [place] [phone] Iam Antunez MD [facility] [place] [address] Pre Procedure Call Social History Tobacco Use [...] * Telephone Encounter - Marleny Aguilar - 08/06/2016 3:07 PM EDT Patient is calling back to schedule surgery.I informed him that as soon as we get the orders, we will call him to schedule surgery. * Telephone Encounter - Vandana Barnett - 08/02/2016 11:31 AM EDT There are no surgical orders for [place] for a right tayler. I have asked for him to place those. Once they are in we will call the patient. documented in this encounter Plan of Treatment Not on file documented as of this encounter Visit Diagnoses Not on filedocumented in this encounter
--- OUTSIDE RECORDS SUMMARY | 2024-09-04 18:25 | XMS_ITS | Encounter Summary ---
Author Organization [facility] [place] [address] Care Team Providers Care Geometry Tutor Name Role Phone Unavailable Primary Care Provider Unavailabl e Encounter Details Date Type Department Care Team (Late st Contact Info) Description 10/13/2021 Ancillary Procedure Radiology [facility] at [facility] [place] [address] Hermes Kenny MD [facility] [place] [address] Social History Tobacco Use Types Packs/Day Years [...] Diagnosis Comments FILM LIBRARY STORAGE ONLY DX SHOULDER Routine 10/13/2021 12:00 AM EST documented in this encounter Results * Film Library- Storage Only DX Shoulder (10/13/2021 12:00 AM EST) Narrative GEORGIANA OSPINA - 11/17/2021 11:19 AM EST This exam is auto-finalizing. It's purpose is for storage only. Hermes Kenny MD [facility] [place]M LIBRARY ORD ERABLES RAD [place] documented in this encounter Visit Diagnoses Not on filedocumented in this encounter
[2024-09-04 19:33] LABS: ALT 22 U/L (16-63); AST 23 U/L (15-37); Alkaline Phosphatase 57 U/L (46-116); BUN 15 mg/dL (7-18); Bilirubin, Total 0.74 mg/dL (0.2-1.0); CREATININE 0.8 mg/dL (0.70-1.30); Calcium 9.5 mg/dL (8.5-10.1); Calculated LDL 71 mg/dL (<100); Chloride 102 mmol/L (98-107); Cholesterol 195 mg/dL (<200); Estimated GFR 100.69 (mL/min/1.73m2); Glucose 101 mg/dL (74-106); HDL Cholesterol 115 mg/dL (40-60); Potassium 4.4 mmol/L (3.5-5.1); Sodium 137 mmol/L (136-145); Total Protein 7.9 g/dL (6.4-8.2); Triglyceride 49 mg/dL (<150)
[2024-09-05 19:16] LABS: HIV-1/2 Ag & Ab Screen Negative (Negative)
[2024-09-05 19:18] LABS: Hepatitis C Ab w Rflx HCV PCR Negative (Negative)
== END 2024-09-04 18:21 | disposition home or self-care (01) ==
LOC: NCHCN 18:20
PROVIDERS: PCP Physician Assistant; Visit Provider Physician Assistant
DX: I10 Essential (primary) hypertension (principal); E78.5 Hyperlipidemia, unspecified; Z11.4 Encounter for screening for human immunodeficiency virus [HIV]; Z11.59 Encounter for screening for other viral diseases
CPT/HCPCS: 80053; 80061; 86803; 87389

== ENCOUNTER 2025-03-08 15:09 | Outpatient (REF) | payer BC, SELFPAY ==
[2025-03-08 19:24] LABS: Abs Immature Grans 0.02 10^3/uL (0.0-0.06); Absolute Basophil Count 0.07 10^3/uL (0.0-0.2); Absolute Lymphocyte Count 1.71 10^3/uL (1.2-3.4); Absolute Monocyte Count 0.69 10^3/uL (0.1-0.8); Absolute Neutrophil Count 4.13 10^3/uL (1.2-6.7); Eosinophils % 4.3 %; HCT 44.8 % (40.0-50.0); Immature Grans % 0.3 %; Lymphocytes % 24.7 %; MCH 32.1 pg (27.0-33.0); MCHC 33.5 % (32.0-36.0); MCV 96 fL (80-95); MPV 11.7 fL (8.0-11.0); Neutrophils % 59.7 %; Platelet Count 193 10^3/uL (130-400); RBC 4.68 10^6/uL (4.36-5.78); RDW 12.5 % (11.8-14.1); RDW-SD 44.4 fL; WBC 6.92 10^3/uL (4.4-10.8)
[2025-03-08 19:34] LABS: ALT 21 U/L (16-63); AST 21 U/L (15-37); Albumin 3.8 g/dL (3.4-5.0); Alkaline Phosphatase 74 U/L (46-116); Bilirubin, Direct 0.1 mg/dL (0.0-0.2); Bilirubin, Total 0.4 mg/dL (0.2-1.0); Total Protein 7.4 g/dL (6.4-8.2)
== END 2025-03-08 15:10 | disposition home or self-care (01) ==
LOC: NCHCN 15:09
PROVIDERS: PCP Physician Assistant; Visit Provider Physician Assistant
DX: B35.4 Tinea corporis (principal)
CPT/HCPCS: 80076; 85025

== ENCOUNTER 2025-04-17 13:55 | Outpatient (REF) | payer BC, SELFPAY ==
[2025-04-17 20:37] LABS: ALT 25 U/L (16-63); AST 20 U/L (15-37); Albumin 3.9 g/dL (3.4-5.0); Alkaline Phosphatase 67 U/L (46-116); Bilirubin, Direct 0.2 mg/dL (0.0-0.2); Bilirubin, Total 0.6 mg/dL (0.2-1.0); Total Protein 7.2 g/dL (6.4-8.2)
== END 2025-04-17 13:56 | disposition home or self-care (01) ==
LOC: NCHCN 13:55
PROVIDERS: PCP Physician Assistant; Visit Provider Physician Assistant
DX: B35.4 Tinea corporis (principal)
CPT/HCPCS: 80076